=== PATIENT | male | born 1970 | race Caucasian/White ===

== ENCOUNTER 2021-10-28 10:38 | Inpatient (IN) | payer OTHER ==
[~2021-10-28] VITALS: Ht 177.8 cm; Wt 95.3 kg
[2021-10-28] MEDS ORDERED: GLUMETZA1000 MG PO (10:50)
[2021-10-28] MEDS ORDERED: SYNTHROID200 MCG PO (10:51)
== END 2021-10-31 13:27 | disposition home or self-care (01) | DRG 389 ==
LOC: ER 10:38 → SURH 21:34
PROVIDERS: ADMIT Internal Medicine; ATTEND Internal Medicine
PROC: BW21YZZ Computerized Tomography (CT Scan) of Abdomen and Pelvis using Other Contrast (ICD-10-PCS; principal; 2021-10-29)
DX: K56.699 Other intestinal obstruction unspecified as to partial versus complete obstruction (principal); C78.7 Secondary malignant neoplasm of liver and intrahepatic bile duct; R10.12 Left upper quadrant pain; K59.09 Other constipation; Z20.822 Contact with and (suspected) exposure to COVID-19; E86.0 Dehydration; E87.8 Other disorders of electrolyte and fluid balance, not elsewhere classified; E11.9 Type 2 diabetes mellitus without complications; Z79.4 Long term (current) use of insulin; I10 Essential (primary) hypertension; D18.03 Hemangioma of intra-abdominal structures